=== PATIENT | male | born 1980 | race Caucasian/White ===

== ENCOUNTER 2019-02-18 09:09 | Emergency (ER) | payer BC ==
[~2019-02-18] VITALS: Ht 180.3 cm; Wt 99.4 kg
--- OUTSIDE RECORDS SUMMARY | 2019-02-18 09:12 | XMS REPORT | Continuity of Care Document ---
Author Author [employer] Address Unknown Phone Unavailable Care Team Providers Care Loan Servicing Specialist Name Role Phone [employer] Unavailable Unavailable Problems Problem Status Onset Date Classification Date Reported Comments Source Headache 09/05/2017 Diagnosis 09/05/2017 [facility] Body mass index 25-29 - overweight 09/05/2017 Problem 09/05/2017 [facility] Pain in throat 09/05/2017 Problem 09/05/2017 [facility] Influenza due to Influenza virus, type B 09/05/2017 Problem 09/05/2017 [facility] Elevated blood-pressure reading without diagnosis of hypertension 09/05/2017 Problem 09/05/2017 [facility] Medications Medication Details Route Status Patient Instructions Ordering Provider Order Date Source Brompheniramine Maleate 0.4 MG/ML / Dextromethorphan Hydrobromide 2 MG/ML / Pseudoephedrine Hydrochloride 6 MG/ML Oral Solution [Bromfed DM] Bromfed DM 2 mg-30 mg-10 mg/5 mL syrup Take 10 mL every 6 hours by oral route as needed for 6 days. Active [facility] Allergies, Adverse Reactions, Alerts No Known Medication Allergies Immunizations Immunization Date Given Site Status Last Updated Comments Source Tdap 06/25/2016 completed [facility] Results Order Name Results Value Reference Range Date Interpretation Comments Source RESULT negative 09/05/2017 [facility] SWAB LOCATION Left and Right tonsillar pillars 09/05/2017 [facility] Influenza A negative 09/05/2017 [facility] Influenza B positive 09/05/2017 [facility] Pathology Reports No Data Provided for This Section Diagnostic Reports No Data Provided for This Section Consultation Notes No Data Provided for This Section Discharge Summaries No Data Provided for This Section History and Physicals No Data Provided for This Section Vital Signs Vital Sign Value Date Comments Source Diastolic (mm Hg) 80 09/05/2017 [facility] Height 71 09/05/2017 [facility] Systolic (mm Hg) 122 09/05/2017 [facility] Weight 205 09/05/2017 [facility] Encounters Location Location Details Encounter Type Encounter Number Reason For Visit Attending Provider ADM Date DC Date Status Source [place] - [facility] - [id number] Alejandra, [facility]: [address] [place]gins, [place] [address], Ph. [id number] Francie Justyn 09/05/2017 [facility] Procedures No Data Provided for This Section Assessment and Plan No Data Provided for This Section Plan of Care No Data Provided for This Section Social History Social History Date Source Smoking Status Never Smoker 09/05/2017 [facility] Family History No Data Provided for This Section Advance Directives No Data Provided for This Section Functional Status No Data Provided for This Section
--- OUTSIDE RECORDS SUMMARY | 2019-02-18 09:12 | XMS REPORT | Encounter Summary ---
Author Organization Unknown Address [address] [place] [address] Phone [phone] Reason for Visit Medical Complaint Instructions 1. Influenza due to Influenza virus, type B rapid flu (A+B) Bromfed DM 2 mg-30 mg-10 mg/5 mL syrup 2. Pain in throat sore throat: care instructions rapid strep group A, throat 3. Headache headache: care instructions 4. Body mass index 25-29 - overweight 5. Elevated blood-pressure reading without diagnosis of hypertension Discussion Note Pt is in NAD; Verbalizes understanding of all instructions with no questions at this time. Plan of Care Patient Instructions Take fluticasone as needed for congestion. [place] one spray in each nostril twice a day. Take a warm, steamy shower, blow your nose thereafter, and spray in each nostril. Tilt your head up for about 10 seconds and breath through your mouth. Do not sniff or snort the medication in or else the medication will go to your throat and not be absorbed appropriately. Take Bromfed DM for cough as directed. Alternate with Ibuprofen and acetaminophen every 4hrs as needed for pain/fever/headache. Proper hydration and rest. Return to work/school if free of fever for 24-hrs. Do not share any utensils/cups, no kissing, recommend hand washing after coughing/sneezing/blowing nose and cover face when you do so. Take medications as prescribed. Follow up with your PCP within 2-3 days if symptoms worsen as discussed. Recommend follow a low sodium/fat/carb diet and exercise 30-45 mins/d 3-4 days a week once symptoms resolve. Recommend monitor BP at home and document, bring BP log to PCP for review. Reminders Provider Appointments None recorded. Lab Rapid Flu (A+B) 09/05/2017 [facility] Rapid Strep Group a, Throat 09/05/2017 [facility] Referral None recorded. Procedures None recorded. Surgeries None recorded. Imaging None recorded. Medications Name Start Date Bromfed DM 2 mg-30 mg-10 mg/5 mL syrup Take 10 mL every 6 hours by oral route as needed for 6 days. Medications Administered None recorded. Vitals Height Weight BMI Blood Pressure 5 ft 11 in 205 lbs 28.6 kg/m2 (1) 124/84 mm[Hg] (2) 122/80 mm[Hg] Lab Results Date Name Specimen Result Interpretation Description Value Range Status Address Rapid Strep Group a, Throat Result negative [facility]: [address] [place] [address] Swab Location Left and Right tonsillar pillars [facility]: [address] [place] [address] Rapid Flu (A+B) Influenza a negative [facility]: [address] [place] [address] Influenza B positive [facility]: [address] [place] [address] Allergies Code Code System Name Reaction Severity Status Onset NKDA Problems Name Status Onset Date Source Body Mass Index 25-29 - Overweight Active 09/05/2017 Pain in Throat Active 09/05/2017 Influenza Due to Influenza Virus, Type B Active 09/05/2017 Elevated Blood-pressure Reading without Diagnosis of Hypertension Active 09/05/2017 Procedures None recorded. Vaccine List Vaccine Type Tdap 06/25/2016 Social History Smoking Status Never Smoker Past Encounters 09/05/2017 Influenza Due to Influenza Virus, Type B; Pain in Throat; Headache; Body Mass Index 25-29 - Overweight; Elevated Blood-pressure Reading without Diagnosis of Hypertension Francie Alejandra, [facility]: [address] [place] [address], Ph. History of Present Illness [id number] Reported By: Patient HPI: Quality: symptoms worse during the day. Duration: 5 days. Severity: subjective temperature. Context: no ill contacts, no tick/insect bites, no recent travel, no new medications. Associated Symptoms: no muscle aches, no rash, no lethargy, fever/chills, headache, cough, nasal passage blockage (stuffiness), nasal discharge; minimal sore throat, chest congestion, and body aches. Modifying Factors nothing gives relief Review of Systems:ROS as noted in the HPI Review of Systems Basic Reported By: Patient Physical Exam Adult Basic, Adult Male Complete Reported By: Patient Constitutional: General Appearance: healthy-appearing, well-nourished, well-developed, overweight. Level of Distress: NAD. Ambulation: ambulating normally Psychiatric: Mental Status: active and alert. Orientation: to time, to place, to person Eyes: Lids and Conjunctivae: non-injected, no discharge, no pallor. Pupils: PERRLA. Corneas: grossly intact. EOM: EOMI. Lens: clear. Vision: peripheral vision grossly intact Dvi-Qfvy-Tqnja-Throat: Ears: no lesions on external ear, no outer ear tenderness, EACs clear, TMs clear. Hearing: no hearing loss. Nose: no lesions on external nose, nares patent, no septal deviation, nasal passages clear, no sinus tenderness, nasal discharge--rhinorrhea. Lips, Teeth, and Gums: no mouth or lip ulcers, no bleeding gums, normal dentition. Oropharynx: moist mucous membranes, no erythema, no exudates, tonsils not enlarged Neck: Neck: supple. Lymph Nodes: no cervical LAD Lungs: Respiratory effort: no dyspnea, no tachypnea, no use of accessory muscles, no intercostal retractions. Auscultation: breath sounds normal, good air movement Cardiovascular: Heart Auscultation: RRR, no murmurs Neurologic: Gait and Station: normal gait, normal station. Cranial Nerves: grossly intact. Sensation: grossly intact. Reflexes: DTRs 2+ bilaterally throughout
--- NOTE | 2019-02-18 09:26 | NUR ---
pt is suppose to wear glasses but does not
[2019-02-18] MEDS ORDERED: NAPROSYN500 MG PO (10:52)
[2019-02-18 11:32] VITALS: BP 127/75
== END 2019-02-18 11:07 | disposition home or self-care (01) ==
LOC: FSED 09:09
DX: H57.11 Ocular pain, right eye (principal); H54.7 Unspecified visual loss; I10 Essential (primary) hypertension
CPT/HCPCS: 99283